=== PATIENT | female | born 1995 | race Caucasian/White ===

== ENCOUNTER 2016-03-02 23:49 | Emergency (ER) | payer OTHER ==
[2016-03-03] MEDS ORDERED: NS 0.9% 1000 ML* 1,000 ML IV ONE (00:01)
[2016-03-03 00:28] LABS: Hematocrit 36 % (35-47); Hemoglobin 12.5 g/dl (12.0-16.0); Mean Corpuscular HGB Conc 34 g/dl (31-36); Mean Corpuscular Hemoglobin 32 pg (27-31); Mean Corpuscular Volume 92 fL (80-97); Mean Platelet Volume 8 um3 (7.4-10.4); Red Blood Count 3.95 10^6/ul (4.0-5.4); Red Cell Distribution Width 12 % (10.5-15); White Blood Count 8.7 10^3/ul (3.5-10.8)
[2016-03-03 00:37] LABS: Albumin 4.3 g/dL (3.2-5.2); BUN/Creatinine Ratio 12.9 (8-20); Calcium 8.9 mg/dL (8.6-10.3); EGFR African American 135.8 (>60); EGFR Non-African American 105.6 (>60); Globulin 2.8 g/dL (2-4); Potassium 3.1 mmol/L (3.5-5.0); Total Bilirubin 0.3 mg/dL (0.2-1.0); Total Protein 7.1 g/dL (6.4-8.9)
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
[2016-03-03] MEDS ORDERED: Potassium Chlor TAB* 20 MEQ TAB.ER PO ONE (02:27)
--- NOTE | 2016-03-03 05:35 | ED ---
Dandre Maza Adam, scribed for Julien Cowan on 03/03/16 at 0529 . Progress - Progress Note Progress Note: Patient is able to walk around and ready to go home. She will be discharged. Course/Dx - Diagnoses Provider Diagnoses: Alcohol intoxication The documentation as recorded by the Dandre jha Adam accurately reflects the service I personally performed and the decisions made by Camryn deras Emmanuel.
[2016-03-03 05:42] VITALS: BP 101/64
== END 2016-03-03 05:42 ==
LOC: ED 23:49
DX: F10.129 Alcohol abuse with intoxication, unspecified (principal); R11.10 Vomiting, unspecified; R51 Headache
CPT/HCPCS: 36415; 80053; 80320; 85025; 96360; 99283; A9270-GY; G0480